=== PATIENT | male | born 1945 | race Caucasian/White ===

== ENCOUNTER 2016-08-25 23:30 | Emergency (ER) | payer MEDICARE, OTHER ==
[2016-08-26 00:02] LABS: BASOPHILS % 0.5 (0.0-1.5); EOSINOPHILS % 2.4 % (0.0-6.8); LYMPHOCYTES # 1.9 # k/uL (0.6-4.0); MONOCYTES # 0.4 # k/uL (0.0-0.9); MONOCYTES % 7.2 % (0.0-11.0); NEUTROPHILS # 3.5 # k/uL (1.4-7.7)
[2016-08-26] MEDS: OXYMETAZOLINE HCL 0.05% NASAL SPRAY NS ONE (00:30)
[2016-08-26] MEDS ORDERED: OXYMETAZOLINE HCL 0.05% NASAL SPRAY NS ONE (00:57)
--- NOTE | 2016-08-26 02:06 | ED Physician Documentation ---
General Adult - HISTORIAN Historian: patient - HPI Stated Complaint: nose bleed Chief Complaint: General Adult Further Comments: yes (Pt is a 71 yo male) - ROS CONST: no problems EYES/ENT: other (R epistaxis) CVS/RESP: none GI/: none MS/SKIN/LYMPH: none - PAST HX Past History: other (Depression, GERD, CA) Allergies/Adverse Reactions: Allergies Allergy/AdvReac Type Severity Reaction Status Date / Time Penicillins Allergy Unknown Verified 08/25/16 23:42 Sulfa (Sulfonamide Allergy Unknown Verified 08/25/16 23:42 Antibiotics) Home Medications: Ambulatory Orders Medication Instructions Recorded Aspirin [Yoli] 81 mg PO QD 03/11/14 Bupropion HCl [Wellbutrin Sr] 150 mg PO DAILY 03/11/14 Citalopram Hydrobromide [Celexa] 40 mg PO DAILY 03/11/14 Clonazepam [Klonopin] 0.5 mg PO TID 03/11/14 Furosemide [Lasix] 40 mg PO 714 03/11/14 Potassium Chloride [K-Tab ER] 30 meq PO BID 03/11/14 Quetiapine Fumarate [Seroquel] 50 mg PO BID 03/11/14 Ranitidine HCl [Zantac] 150 mg PO BID 03/11/14 Warfarin Sodium [Coumadin] 7.5 mg PO DAILY 03/11/14 Cetirizine HCl [Zyrtec] 10 mg PO D 05/18/16 Fluticasone Propionate [Flovent 2 spray INH BID 05/18/16 Diskus] Sotalol HCl [Sotalol] 100 mg PO BID 08/26/16 - SOCIAL HX Smoking History: non-smoker - FAMILY HX Family History: No - VITAL SIGNS Vital Signs: Vital Signs Temp Pulse Resp BP Pulse Ox 98.4 F 70 18 133/82 97 08/25/16 23:30 08/25/16 23:30 08/25/16 23:30 08/25/16 23:30 08/25/16 23:30 - REVIEWED ASSESSMENTS Nursing Assessment Reviewed: Yes Vitals Reviewed: Yes Progress - Progress Progress: Afrin nasal spray silver nitrate to anterior R nares Nasal sponges (2) inserted into R nares skip next dose of coumadin and aspirin f/u pcp tomorrow for nasal sponge removal. ED Results Lab/Radiology - Lab Results Lab Results: Lab Results 08/25/16 08/25/16 23:57 23:57 WBC 6.20 K/ul K/ul (4.00-12.00) RBC 4.67 M/ul M/ul (3.90-5.20) Hgb 14.4 g/dL g/dL (12.0-18.0) Hct 46.4 % % (37.0-53.0) MCV 99.3 fl fl (80.0-100.0) MCH 31.0 pg pg (28.0-34.0) MCHC 31.2 g/dL g/dL (30.0-36.0) RDW 14.6 % H % (11.3-14.3) Plt Count 113 K/mm3 L K/mm3 (130-400) Neut % (Auto) 56.3 % % (39.0-79.0) Lymph % (Auto) 31.1 % % (16.0-50.0) [place] % (Auto) 7.2 % % (0.0-11.0) Eos % (Auto) 2.4 % % (0.0-6.8) Baso % (Auto) 0.5 (0.0-1.5) Neut # 3.5 # k/uL # k/uL (1.4-7.7) Lymph # 1.9 # k/uL # k/uL (0.6-4.0) [place] # 0.4 # k/uL # k/uL (0.0-0.9) Eos # 0.2 # k/uL # k/uL (0.0-0.6) Baso # 0.0 # k/uL # k/uL (0.0-0.5) Reactive Lymphs % 2.4 % % (0.0-5.0) Reactive Lymphs # 0.2 # k/uL # k/uL (0.0-0.8) PT 27.0 Seconds H Seconds (9.7-11.5) INR 2.5 H (0.9-1.1) APTT 30.8 Seconds Seconds (24.5-32.8) - Orders Orders: ED Orders Category Date Time Status CBC/PLATELET/DIFF Routine Lab 08/25/16 23:57 Completed PT-INR Routine Lab 08/25/16 23:57 Completed PTT Routine Lab 08/25/16 23:57 Completed Oxymetazoline HCl [Afrin 0.05%] Med 08/26/16 00:57 Discontinued 30 spray NS .STK-MED ONE General Adult Physical Exam - PHYSICAL EXAM GENERAL APPEARANCE: mild distress EENT: eye inspection normal, other (epistaxis, R nares) NECK: normal inspection, supple RESPIRATORY: no resp distress, chest non-tender, breath sounds normal CVS: reg rate & rhythm, heart sounds normal BACK: normal inspection SKIN: warm/dry, normal color EXTREMITIES: non-tender, normal range of motion NEURO: oriented X3, motor nml, sensation nml Discharge Clincal Impression: Right-sided nosebleed Referrals: Jamie Carlin MD [Primary Care Provider] - Additional Instructions: Follow up with primary provider tomorrow for removal of nasal sponge. Skip next dose of coumadin. Home Medications: Ambulatory Orders Aspirin [Yoli] 81 mg PO QD 03/11/14 Bupropion HCl [Wellbutrin Sr] 150 mg PO DAILY 03/11/14 Citalopram Hydrobromide [Celexa] 40 mg PO DAILY 03/11/14 Clonazepam [Klonopin] 0.5 mg PO TID 03/11/14 Furosemide [Lasix] 40 mg PO 714 03/11/14 Potassium Chloride [K-Tab ER] 30 meq PO BID 03/11/14 Quetiapine Fumarate [Seroquel] 50 mg PO BID 03/11/14 Ranitidine HCl [Zantac] 150 mg PO BID 03/11/14 Warfarin Sodium [Coumadin] 7.5 mg PO DAILY 03/11/14 Cetirizine HCl [Zyrtec] 10 mg PO D 05/18/16 Fluticasone Propionate [Flovent Diskus] 2 spray INH BID 05/18/16 Sotalol HCl [Sotalol] 100 mg PO BID 08/26/16 Condition: Good Disposition: 01 HOME, SELF-CARE Decision to Admit: NO Decision Time: 02:06
[2016-08-26 02:28] VITALS: BP 136/96
== END 2016-08-26 02:10 | disposition home or self-care (01) ==
LOC: ED 23:30
DX: R04.0 Epistaxis (principal); D68.32 Hemorrhagic disorder due to extrinsic circulating anticoagulants; T45.515A Adverse effect of anticoagulants, initial encounter
CPT/HCPCS: 30901; 85025; 85610; 85730; 99283

== ENCOUNTER 2016-08-29 12:25 | Outpatient (CLI) | payer MEDICARE, OTHER | END 2016-08-29 12:26 | LOC: LAB 12:25 | PROVIDERS: ATTEND Internal Medicine Clinical Cardiac Electrophysiology | DX: I34.0 Nonrheumatic mitral (valve) insufficiency (principal) | CPT/HCPCS: 36415; 85610 ==

== ENCOUNTER 2016-09-09 12:04 | Outpatient (CLI) | payer MEDICARE, OTHER | END 2016-09-09 12:10 | LOC: LAB 12:04 | PROVIDERS: ATTEND Internal Medicine Clinical Cardiac Electrophysiology | DX: Z51.81 Encounter for therapeutic drug level monitoring (principal); Z79.01 Long term (current) use of anticoagulants; I34.0 Nonrheumatic mitral (valve) insufficiency | CPT/HCPCS: 36415; 85610 ==

== ENCOUNTER 2016-09-23 13:33 | Outpatient (CLI) | payer MEDICARE, OTHER | END 2016-09-23 13:34 | LOC: LAB 13:33 | PROVIDERS: ATTEND Internal Medicine Clinical Cardiac Electrophysiology | DX: Z51.81 Encounter for therapeutic drug level monitoring (principal); Z79.01 Long term (current) use of anticoagulants; I37.0 Nonrheumatic pulmonary valve stenosis | CPT/HCPCS: 36415; 85610 ==

== ENCOUNTER 2016-10-07 13:30 | Outpatient (CLI) | payer MEDICARE, OTHER | END 2016-10-07 13:32 | LOC: LAB 13:30 | PROVIDERS: ATTEND Internal Medicine Clinical Cardiac Electrophysiology | DX: I34.0 Nonrheumatic mitral (valve) insufficiency (principal) | CPT/HCPCS: 36415; 85610 ==

== ENCOUNTER 2016-10-28 14:00 | Outpatient (CLI) | payer MEDICARE, OTHER | END 2016-10-28 14:02 | LOC: LAB 14:00 | PROVIDERS: ATTEND Internal Medicine Clinical Cardiac Electrophysiology | DX: Z51.81 Encounter for therapeutic drug level monitoring (principal); Z79.899 Other long term (current) drug therapy; I34.0 Nonrheumatic mitral (valve) insufficiency | CPT/HCPCS: 36415; 85610 ==

== ENCOUNTER 2016-11-13 10:56 | Outpatient (CLI) | payer MEDICARE, OTHER | END 2016-11-13 10:57 | LOC: LAB 10:56 | PROVIDERS: ATTEND Internal Medicine Clinical Cardiac Electrophysiology | DX: Z51.81 Encounter for therapeutic drug level monitoring (principal); Z79.01 Long term (current) use of anticoagulants; I34.0 Nonrheumatic mitral (valve) insufficiency | CPT/HCPCS: 36415; 85610 ==

== ENCOUNTER 2016-11-28 08:50 | Outpatient (CLI) | payer MEDICARE, OTHER | END 2016-11-28 08:52 | LOC: LAB 08:50 | PROVIDERS: ATTEND Internal Medicine Clinical Cardiac Electrophysiology | DX: Z51.81 Encounter for therapeutic drug level monitoring (principal); Z79.01 Long term (current) use of anticoagulants; I35.0 Nonrheumatic aortic (valve) stenosis | CPT/HCPCS: 36415; 85610 ==

== ENCOUNTER 2016-11-28 08:59 | Emergency (ER) | payer MEDICARE, OTHER ==
[2016-11-28 09:11] VITALS: BP 117/77
--- NOTE | 2016-11-28 14:12 | ED Physician Documentation ---
General Adult - HISTORIAN Historian: patient - HPI Stated Complaint: Abrasion to Left Elbow Chief Complaint: General Adult Further Comments: yes (71 year old male patient presents after having PT/INR drawn with abrasion on left elbow. Patient states he cannot get the wound to stop bleeding.) - ROS CONST: no problems EYES/ENT: none CVS/RESP: none GI/: none MS/SKIN/LYMPH: none NEURO/PSYCH: denies: headache - PAST HX Past History: AMI Other History: other (GERD, depression) Surgeries/Procedures: cardiac bypass Allergies/Adverse Reactions: Allergies Allergy/AdvReac Type Severity Reaction Status Date / Time Penicillins Allergy Unknown Verified 11/28/16 09:11 Sulfa (Sulfonamide Allergy Unknown Verified 11/28/16 09:11 Antibiotics) Home Medications: Ambulatory Orders Medication Instructions Recorded Aspirin [Yoli] 81 mg PO QD 03/11/14 Bupropion HCl [Wellbutrin Sr] 150 mg PO DAILY 03/11/14 Citalopram Hydrobromide [Celexa] 40 mg PO DAILY 03/11/14 Clonazepam [Klonopin] 0.5 mg PO TID 03/11/14 Furosemide [Lasix] 40 mg PO 714 03/11/14 Potassium Chloride [K-Tab ER] 30 meq PO BID 03/11/14 Quetiapine Fumarate [Seroquel] 50 mg PO BID 03/11/14 Ranitidine HCl [Zantac] 150 mg PO BID 03/11/14 Warfarin Sodium [Coumadin] 7.5 mg PO DAILY 03/11/14 Cetirizine HCl [Zyrtec] 10 mg PO D 05/18/16 Fluticasone Propionate [Flovent 2 spray INH BID 05/18/16 Diskus] Sotalol HCl [Sotalol] 100 mg PO BID 08/26/16 - SOCIAL HX Smoking History: non-smoker - FAMILY HX Family History: No - VITAL SIGNS Vital Signs: Vital Signs Temp Pulse Resp BP Pulse Ox 97 F L 71 16 117/77 99 11/28/16 09:16 11/28/16 09:16 11/28/16 09:16 11/28/16 09:16 11/28/16 09:16 - REVIEWED ASSESSMENTS Nursing Assessment Reviewed: Yes Vitals Reviewed: Yes General Adult Physical Exam - PHYSICAL EXAM GENERAL APPEARANCE: no distress EENT: eye inspection normal, ANUJ SKIN: warm/dry, normal color, other (3 cm abrasion to left elbow. Multiple ecchymotic areas noted on bilateral forearms. 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 NEURO: oriented X3, CN's nml as tested Discharge Clincal Impression: Abrasion Home Medications: Ambulatory Orders Aspirin [Yoli] 81 mg PO QD 03/11/14 Bupropion HCl [Wellbutrin Sr] 150 mg PO DAILY 03/11/14 Citalopram Hydrobromide [Celexa] 40 mg PO DAILY 03/11/14 Clonazepam [Klonopin] 0.5 mg PO TID 03/11/14 Furosemide [Lasix] 40 mg PO 714 03/11/14 Potassium Chloride [K-Tab ER] 30 meq PO BID 03/11/14 Quetiapine Fumarate [Seroquel] 50 mg PO BID 03/11/14 Ranitidine HCl [Zantac] 150 mg PO BID 03/11/14 Warfarin Sodium [Coumadin] 7.5 mg PO DAILY 03/11/14 Cetirizine HCl [Zyrtec] 10 mg PO D 05/18/16 Fluticasone Propionate [Flovent Diskus] 2 spray INH BID 05/18/16 Sotalol HCl [Sotalol] 100 mg PO BID 08/26/16 Condition: Stable Disposition: 01 HOME, SELF-CARE Decision to Admit: NO Decision Time: 09:10
== END 2016-11-28 09:16 | disposition home or self-care (01) ==
LOC: ED 08:59
DX: S50.312A Abrasion of left elbow, initial encounter (principal); W19.XXXA Unspecified fall, initial encounter; Y93.9 Activity, unspecified; Y99.9 Unspecified external cause status
CPT/HCPCS: 99283

== ENCOUNTER 2016-12-05 13:50 | Outpatient (CLI) | payer MEDICARE, OTHER | END 2016-12-05 13:52 | LOC: LAB 13:50 | PROVIDERS: ATTEND Internal Medicine Clinical Cardiac Electrophysiology | DX: Z51.81 Encounter for therapeutic drug level monitoring (principal); Z79.01 Long term (current) use of anticoagulants; I34.0 Nonrheumatic mitral (valve) insufficiency | CPT/HCPCS: 36415; 85610 ==

== ENCOUNTER 2016-12-17 12:36 | Outpatient (CLI) | payer MEDICARE, OTHER | END 2016-12-17 12:37 | LOC: LAB 12:36 | PROVIDERS: ATTEND Internal Medicine Clinical Cardiac Electrophysiology | DX: Z51.81 Encounter for therapeutic drug level monitoring (principal); Z79.01 Long term (current) use of anticoagulants; I34.0 Nonrheumatic mitral (valve) insufficiency | CPT/HCPCS: 36415; 85610 ==

== ENCOUNTER 2017-01-06 08:17 | Outpatient (CLI) | payer MEDICARE, OTHER | END 2017-01-06 08:18 | LOC: LAB 08:17 | PROVIDERS: ATTEND Internal Medicine Clinical Cardiac Electrophysiology | DX: I34.0 Nonrheumatic mitral (valve) insufficiency (principal) | CPT/HCPCS: 36415; 85610 ==

== ENCOUNTER 2017-01-17 11:17 | Emergency (ER) | payer MEDICARE, OTHER ==
--- NOTE | 2017-01-17 12:05 | ED Physician Documentation ---
General Adult - HISTORIAN Historian: patient - HPI Stated Complaint: lac left elbow Chief Complaint: Laceration/Recheck/Suture Additional Information: Fell last evening onto glass insulator. Lac left elbow. Can't stop bleeding. On coumadin. Rafaela Toure sent him to ER. Onset: other (2029 last ) - ROS CONST: no problems - PAST HX Past History: AMI Surgeries/Procedures: cardiac bypass Allergies/Adverse Reactions: Allergies Allergy/AdvReac Type Severity Reaction Status Date / Time Penicillins Allergy Unknown Verified 01/17/17 11:45 Sulfa (Sulfonamide Allergy Unknown Verified 01/17/17 11:45 Antibiotics) Home Medications: Ambulatory Orders Medication Instructions Recorded Aspirin [Yoli] 81 mg PO QD 03/11/14 Bupropion HCl [Wellbutrin Sr] 150 mg PO DAILY 03/11/14 Citalopram Hydrobromide [Celexa] 40 mg PO DAILY 03/11/14 Clonazepam [Klonopin] 0.5 mg PO TID 03/11/14 Furosemide [Lasix] 40 mg PO 714 03/11/14 Potassium Chloride [K-Tab ER] 30 meq PO BID 03/11/14 Quetiapine Fumarate [Seroquel] 50 mg PO BID 03/11/14 Ranitidine HCl [Zantac] 150 mg PO BID 03/11/14 Warfarin Sodium [Coumadin] 7.5 mg PO DAILY 03/11/14 Cetirizine HCl [Zyrtec] 10 mg PO D 05/18/16 Fluticasone Propionate [Flovent 2 spray INH BID 05/18/16 Diskus] Sotalol HCl [Sotalol] 100 mg PO BID 08/26/16 - SOCIAL HX Smoking History: non-smoker - FAMILY HX Family History: No - VITAL SIGNS Vital Signs: Vital Signs Temp Pulse Resp BP Pulse Ox 117/77 11/28/16 09:16 - REVIEWED ASSESSMENTS Nursing Assessment Reviewed: Yes Vitals Reviewed: Yes Progress - Progress Progress: INR 2.6 Left elbow dressed with BRAIN, pressure wrap. ED Results Lab/Radiology - Lab Results Lab Results: Lab Results 01/17/17 11:35 PT 28.0 Seconds H Seconds (9.7-11.5) INR 2.6 H (0.9-1.1) - Orders Orders: ED Orders Category Date Time Status PT-INR Routine Lab 01/17/17 11:35 Completed General Adult Physical Exam - PHYSICAL EXAM GENERAL APPEARANCE: no distress EENT: eye inspection normal, ENT inspection normal NECK: normal inspection, supple RESPIRATORY: no resp distress BACK: other (fluid movements w/o pain) SKIN: warm/dry, normal color, other (3 cm total length lac left elbow, v shaped , no FB. Oozing blood. ) EXTREMITIES: normal range of motion (gait and stance) NEURO: CN's nml as tested, motor nml, sensation nml, cognition normal Discharge Clincal Impression: Laceration of left elbow Qualifiers: Encounter type: initial encounter Qualified Code(s): S51.012A - Laceration without foreign body of left elbow, initial encounter Referrals: Kishan Gutierrez DO [Primary Care Provider] - 2 Days Additional Instructions: Leave the dressing on for two to three days. Home Medications: Ambulatory Orders Aspirin [Yoli] 81 mg PO QD 03/11/14 Bupropion HCl [Wellbutrin Sr] 150 mg PO DAILY 03/11/14 Citalopram Hydrobromide [Celexa] 40 mg PO DAILY 03/11/14 Clonazepam [Klonopin] 0.5 mg PO TID 03/11/14 Furosemide [Lasix] 40 mg PO 714 03/11/14 Potassium Chloride [K-Tab ER] 30 meq PO BID 03/11/14 Quetiapine Fumarate [Seroquel] 50 mg PO BID 03/11/14 Ranitidine HCl [Zantac] 150 mg PO BID 03/11/14 Warfarin Sodium [Coumadin] 7.5 mg PO DAILY 03/11/14 Cetirizine HCl [Zyrtec] 10 mg PO D 05/18/16 Fluticasone Propionate [Flovent Diskus] 2 spray INH BID 05/18/16 Sotalol HCl [Sotalol] 100 mg PO BID 08/26/16 Condition: Good Disposition: 01 HOME, SELF-CARE Decision to Admit: NO Decision Time: 12:04
[2017-01-17 12:17] VITALS: BP 114/65
== END 2017-01-17 12:17 | disposition home or self-care (01) ==
LOC: ED 11:17
DX: S51.012A Laceration without foreign body of left elbow, initial encounter (principal); W19.XXXA Unspecified fall, initial encounter; Y93.9 Activity, unspecified; Y99.9 Unspecified external cause status
CPT/HCPCS: 85610; 99283

== ENCOUNTER 2017-01-20 16:50 | Emergency (ER) | payer MEDICARE, OTHER ==
[2017-01-20] MEDS ORDERED: DILTIAZEM HCL 25 MG/ 5ML VIAL ONE (17:07)
[2017-01-20] MEDS ORDERED: AMIODARONE HCL 150 MG/3ML VIAL IVP ONE ×2 (17:30→17:36)
[2017-01-20] MEDS ORDERED: DILTIAZEM HCL 25 MG/ 5ML VIAL IVP ONE (17:31)
[2017-01-20 17:39] LABS: BASOPHILS % 1.3 (0.0-1.5); EOSINOPHILS % 1.7 % (0.0-6.8); MEAN CORPUSCULAR HEMOGLOBIN 32.2 pg (28.0-34.0); MEAN CORPUSCULAR VOLUME 100.4 fl (80.0-100.0); MONOCYTES % 7.5 % (0.0-11.0); NEUTROPHILS # 2.3 # k/uL (1.4-7.7)
[2017-01-20 17:51] LABS: eGFR (African) > 60; eGFR (Non-African) > 60
[2017-01-20] MEDS ORDERED: ONDANSETRON HCL/PF 4 MG/ 2ML VIAL ONE (18:04)
--- NOTE | 2017-01-20 18:08 | ED Physician Documentation ---
Chest Pain - HISTORIAN Historian: patient - HPI Stated Complaint: chest pain Chief Complaint: Chest Pain Additional Information: had stent plaed past 1-2 weeks. was in cardiac rehab today, after returning home , noted some increasing chest pain, upper abdomen/low chest. called EMS, when they arrived he was tachycardic, with rate in 170's. ECG shows wide complex sinus tach. His pain is not severe. He doesn't feel good, no nausea, SOA, Diaphoresis. Onset: minutes Timing: gradual onset Duration: constant Last known Well Date: 01/20/17 Last Known Well Time: 15:00 Last known Well Code/Unknown Code: Unknown Context: exertion Severity: moderate Quality: dull, aching Chest Pain Radiation: no radiation Chest Pain Signs/Symptoms: denies: nausea, vomiting, diaphoresis, dizziness, dyspnea Worsened By: nothing Relieved By: nothing Further Comments: no - ROS CONST: none MS/LYMPH: none GI/: none EYES/ENT: none SKIN/ENDO: none NEURO/PSYCH: none - PAST HX [place] risk factors: hypertension, hyperlipidemia, cardiac disease DVT/PE Risk Factors: none TAD/AAA risk factors: none Neuro deficit: none GI disease: none Lung disease: none Surgeries/Procedures: cardiac cath, other Allergies/Adverse Reactions: Allergies Allergy/AdvReac Type Severity Reaction Status Date / Time Penicillins Allergy Unknown Verified 01/17/17 11:45 Sulfa (Sulfonamide Allergy Unknown Verified 01/17/17 11:45 Antibiotics) Home Medications: Ambulatory Orders Medication Instructions Recorded Aspirin [Yoli] 81 mg PO QD 03/11/14 Bupropion HCl [Wellbutrin Sr] 300 mg PO DAILY 03/11/14 Citalopram Hydrobromide [Celexa] 40 mg PO DAILY 03/11/14 Clonazepam [Klonopin] 0.5 mg PO TID 03/11/14 Furosemide [Lasix] 40 mg PO 714 03/11/14 Potassium Chloride [K-Tab ER] 20 meq PO BID 03/11/14 Quetiapine Fumarate [Seroquel] 50 mg PO BID 03/11/14 Warfarin Sodium [Coumadin] 7.5 mg PO DAILY 03/11/14 Sotalol HCl [Sotalol] 120 mg PO BID 08/26/16 Clopidogrel Bisulfate [Plavix] 75 mg PO DAILY 01/17/17 Cyclobenzaprine HCl [Flexeril] 5 mg PO TID 01/17/17 Fexofenadine HCl [Tiffani] 180 mg PO DAILY 01/17/17 - SOCIAL HX Smoking History: non-smoker Alcohol Use: none Drug Use: none - FAMILY HX Family HX: none - VITAL SIGNS Vital Signs: Vital Signs Temp Pulse Resp BP Pulse Ox 114/65 01/17/17 12:15 - REVIEWED ASSESSMENTS Nursing Assessment Reviewed: Yes Vitals Reviewed: Yes Progress - Results/Orders Results/Orders: Dr desai wants him transferred to [place] after seeing ECG that was faxed Rate slight decrease after amiodarone x 2 - EKG/XRAY/CT EKG: rhythm (sinus tach 170's) ED Results Lab/Radiology - Orders Orders: ED Orders Category Date Time Status Continuous EKG monitoring Q30M Care 01/20/17 17:29 Ordered Continuous Pulse Oximetry Q30M Care 01/20/17 17:29 Ordered CBC/PLATELET/DIFF Routine Lab 01/20/17 17:29 Ordered CMP Routine Lab 01/20/17 17:29 Ordered CREATINE KINASE Routine Lab 01/20/17 17:29 Ordered TROPONIN I (cTnI) Stat Lab 01/20/17 17:29 Ordered Amiodarone HCl [Cordarone] Med 01/20/17 17:30 Once 150 mg IVP 1T ONE Amiodarone HCl [Cordarone] Med 01/20/17 17:36 Once 150 mg IVP 1T ONE Diltiazem HCl [Cardizem] Med 01/20/17 17:31 Once 20 mg IVP STAT ONE Diltiazem HCl [Cardizem] Med 01/20/17 17:07 Discontinued 25 mg .ROUTE .STK-MED ONE Oxygen Daily Oxygen 01/20/17 17:30 Ordered EKG WITH COMPARISON Routine Ther 01/20/17 Completed Chest Pain Physical Exam - EXAM General Appearance: alert, mild distress EENT: ENT inspection normal Neck: nml inspection. No: JVD present Respiratory: no resp. distress, nml breath sounds. No: resp.distress CVS: pulses equal, tachycardia Abdomen: soft, no distension Skin: warm/dry, normal color Extremities: non-tender Neuro: oriented X3, mood/affect nml, cognition normal Discharge Clincal Impression: Tachycardia Chest pain Qualifiers: Chest pain type: chest pain due to myocardial ischemia Ischemic chest pain type : unstable angina pectoris Qualified Code(s): I20.0 - Unstable angina Coronary artery disease Qualifiers: Coronary Disease-Associated Artery/Lesion type: unspecified vessel or lesion type [place] vs. transplanted heart: [place] heart Associated angina: with stable angina Qualified Code(s): I25.118 - Atherosclerotic heart disease of [place] coronary artery with other forms of angina pectoris Referrals: Kishan Gutierrez DO [Primary Care Provider] - 2 Days Home Medications: Ambulatory Orders Aspirin [Yoli] 81 mg PO QD 03/11/14 Bupropion HCl [Wellbutrin Sr] 300 mg PO DAILY 03/11/14 Citalopram Hydrobromide [Celexa] 40 mg PO DAILY 03/11/14 Clonazepam [Klonopin] 0.5 mg PO TID 03/11/14 Furosemide [Lasix] 40 mg PO 714 03/11/14 Potassium Chloride [K-Tab ER] 20 meq PO BID 03/11/14 Quetiapine Fumarate [Seroquel] 50 mg PO BID 03/11/14 Warfarin Sodium [Coumadin] 7.5 mg PO DAILY 03/11/14 Sotalol HCl [Sotalol] 120 mg PO BID 08/26/16 Clopidogrel Bisulfate [Plavix] 75 mg PO DAILY 01/17/17 Cyclobenzaprine HCl [Flexeril] 5 mg PO TID 01/17/17 Fexofenadine HCl [Tiffani] 180 mg PO DAILY 01/17/17 Condition: Stable Disposition: XFER SHT-TRM HOSP Decision to Admit: NO Date of Decison to Admit: 01/20/17 Decision Time: 18:07
[2017-01-20] MEDS ORDERED: MAGNESIUM SULFATE/D5W 1 GM in PREMIX BAG 1 BAG IV ONE (19:03)
[2017-01-20] MEDS ORDERED: ONDANSETRON HCL/PF 4 MG/ 2ML VIAL IVP ONE (19:04)
[2017-01-20 19:09] VITALS: BP 92/75
[2017-01-20] MEDS ORDERED: PHARMACY KEY 1 EACH EACH MC ONE (19:22)
== END 2017-01-20 18:10 | disposition short-term general hospital (02) ==
LOC: ED 16:50
DX: R00.0 Tachycardia, unspecified (principal); I20.0 Unstable angina; I25.118 Atherosclerotic heart disease of native coronary artery with other forms of angina pectoris
CPT/HCPCS: 80053; 82550; 84484; 85025; 93005; J0282; J2405; J3475; J3490; 96374; 96375; 99284; S1016

== ENCOUNTER 2017-02-10 13:23 | Outpatient (CLI) | payer MEDICARE, OTHER | END 2017-02-10 13:24 | LOC: LAB 13:23 | PROVIDERS: ATTEND Internal Medicine Clinical Cardiac Electrophysiology | DX: I34.0 Nonrheumatic mitral (valve) insufficiency (principal) | CPT/HCPCS: 36415; 85610 ==

== ENCOUNTER 2017-02-19 15:05 | Outpatient (CLI) | payer MEDICARE, OTHER | END 2017-02-19 15:06 | LOC: LAB 15:05 | PROVIDERS: ATTEND Internal Medicine Clinical Cardiac Electrophysiology | DX: I34.0 Nonrheumatic mitral (valve) insufficiency (principal) | CPT/HCPCS: 36415; 85610 ==

== ENCOUNTER 2017-02-22 15:48 | Emergency (ER) | payer MEDICARE, OTHER ==
--- NOTE | 2017-02-22 16:12 | ED Physician Documentation ---
General Adult - HISTORIAN Historian: patient - HPI Chief Complaint: General Adult Onset: days ago (3 weeks ago) Timing: still present, persistent since Further Comments: yes (Italo states that he had a stent placed about 3 weeks ago. Had been taking coumadin for atrial fibrillation. Has a pacemaker and defibulator. After stint was placed was placed on plavix. Since that time he has been bruising a lot more. Has fallen several times over the last several days. No known reason. Has some generalized weakness but does not think that it contributed to his weakness. No numbness noted. Has not followed up with anyone about the symptoms.) - ROS CONST: denies: fever, chills - PAST HX Past History: A-Fib, other (CAD). denies: COPD Surgeries/Procedures: cardiac bypass (, ), cardiac stent (3 weeks ago) Allergies/Adverse Reactions: Allergies Allergy/AdvReac Type Severity Reaction Status Date / Time Penicillins Allergy Unknown Verified 02/22/17 16:20 Sulfa (Sulfonamide Allergy Unknown Verified 02/22/17 16:20 Antibiotics) Home Medications: Ambulatory Orders Medication Instructions Recorded Aspirin [Yoli] 81 mg PO QD 03/11/14 Bupropion HCl [Wellbutrin Sr] 300 mg PO DAILY 03/11/14 Citalopram Hydrobromide [Celexa] 40 mg PO DAILY 03/11/14 Clonazepam [Klonopin] 0.5 mg PO TID 03/11/14 Furosemide [Lasix] 40 mg PO 714 03/11/14 Potassium Chloride [K-Tab ER] 20 meq PO BID 03/11/14 Quetiapine Fumarate [Seroquel] 50 mg PO BID 03/11/14 Warfarin Sodium [Coumadin] 7.5 mg PO DAILY 03/11/14 Sotalol HCl [Sotalol] 120 mg PO BID 08/26/16 Clopidogrel Bisulfate [Plavix] 75 mg PO DAILY 01/17/17 Fexofenadine HCl [Tiffani] 180 mg PO DAILY 01/17/17 Amiodarone HCl [Pacerone] 200 mg PO QD 02/22/17 - SOCIAL HX Smoking History: non-smoker Alcohol Use: none Drug Use: none - FAMILY HX Family History: No - VITAL SIGNS Vital Signs: Vital Signs Temp Pulse Resp BP Pulse Ox 92/75 01/20/17 19:06 - REVIEWED ASSESSMENTS Nursing Assessment Reviewed: Yes Vitals Reviewed: Yes Progress - EKG/XRAY/CT Comments: pacer rhythm at 70 General Adult Physical Exam - PHYSICAL EXAM GENERAL APPEARANCE: mild distress EENT: eye inspection normal, ENT inspection normal, pharynx normal, no signs of dehydration NECK: normal inspection, supple. No: lymphadenopathy RESPIRATORY: no resp distress, chest non-tender, breath sounds normal. No: wheezes, rales, rhonchi CVS: reg rate & rhythm, heart sounds normal, equal pulses, no murmur, JVD present ABDOMEN: soft, no organomegaly, normal bowel sounds, no abdominal bruit, no distension, non-tender BACK: normal inspection, no CVA tenderness SKIN: warm/dry, other (multiple ecchymotic lesions tot he trunk and UE) NEURO: oriented X3, CN's nml as tested, motor nml, sensation nml, mood/affect nml, cognition normal Discharge Clincal Impression: Weakness, Pleural effusion, Elevated INR Referrals: Kishan Gutierrez DO [Primary Care Provider] - 2 Days Additional Instructions: It is important for you to follow-up with your primary care provider. Do not take your coumadin tonight. Follow-up with Rafaela Pretty next week about your symptoms, elevated INR and right pleural effusion. Return to the ED if needed. Home Medications: Ambulatory Orders Aspirin [Yoli] 81 mg PO QD 03/11/14 Bupropion HCl [Wellbutrin Sr] 300 mg PO DAILY 03/11/14 Citalopram Hydrobromide [Celexa] 40 mg PO DAILY 03/11/14 Clonazepam [Klonopin] 0.5 mg PO TID 03/11/14 Furosemide [Lasix] 40 mg PO 714 03/11/14 Potassium Chloride [K-Tab ER] 20 meq PO BID 03/11/14 Quetiapine Fumarate [Seroquel] 50 mg PO BID 03/11/14 Warfarin Sodium [Coumadin] 7.5 mg PO DAILY 03/11/14 Sotalol HCl [Sotalol] 120 mg PO BID 08/26/16 Clopidogrel Bisulfate [Plavix] 75 mg PO DAILY 01/17/17 Fexofenadine HCl [Tiffani] 180 mg PO DAILY 01/17/17 Amiodarone HCl [Pacerone] 200 mg PO QD 02/22/17 Decision to Admit: NO Date of Decison to Admit: 02/22/17 Decision Time: 18:02
[2017-02-22 16:59] LABS: BASOPHILS % 0.4 (0.0-1.5); EOSINOPHILS % 1.2 % (0.0-6.8); MEAN CORPUSCULAR HEMOGLOBIN 32.2 pg (28.0-34.0); MEAN CORPUSCULAR VOLUME 99.4 fl (80.0-100.0); MONOCYTES % 7.1 % (0.0-11.0); NEUTROPHILS # 3.5 # k/uL (1.4-7.7)
[2017-02-22 17:09] LABS: eGFR (African) > 60; eGFR (Non-African) 53
--- NOTE | 2017-02-22 17:48 | Diagnostic Imaging Report ---
[place]~ [facility] [address] [facility] [address] ~ ~ ~ ~ Report Submission Date: Feb 22, 2017 4:55:43 PM CDT Patient ~ Study Name: BIBIANA DIAZ ~ Date: Feb 22, 2017 4:21:12 PM CDT ~ Modality Type: CR Gender: M ~ Description: CHEST : 41 ~ Institution: [facility] Physician: [place] ~ ~ ~ ~ 2 views the chest Clinical history: Dyspnea Findings: There is a small right pleural effusion right lower lobe atelectasis and/or infiltrate. Heart size mildly enlarged. Left-sided pacemaker noted. Overlying leads and evaluation. No pneumothorax. Left-sided pacemaker /defibrillator noted. Prior median sternotomy and valve replacement noted. There is a hiatal hernia. Impression: 1. Right pleural effusion with lower lobe atelectasis or infiltrate. 2. Hiatal hernia. ~ Electronically signed on Feb 22, 2017 4:55:43 PM CDT by: Yassine MOCK
[2017-02-22 18:32] VITALS: BP 148/72
== END 2017-02-22 18:20 ==
LOC: ED 15:48
DX: R53.1 Weakness (principal); J90 Pleural effusion, not elsewhere classified
CPT/HCPCS: 71020; 80053; 84484; 85025; 85610; 99283; S1016

== ENCOUNTER 2017-03-13 20:18 | Emergency (ER) | payer MEDICARE, OTHER ==
[2017-03-13] MEDS ORDERED: ACETAMINOPHEN 500 MG TABLET ONE (21:28)
[2017-03-13] MEDS: ACETAMINOPHEN 500 MG TABLET PO ONE (21:28)
--- NOTE | 2017-03-13 21:41 | ED Physician Documentation ---
Hand Injury - HISTORIAN Historian: patient - HPI Stated Complaint: Fall with Left Arm Injury Chief Complaint: Hand Injury Additional Information: fell off rolling chair Onset: just prior to arrival Where: home Severity: moderate Duration: persistent since (fall) Context: fall Location of Injury: L elbow, L fingers (index) Modifying Factors: pain on movement Further Comments: no - ROS CONST: no problems GI/: denies: problems urinating, nausea, vomiting NEURO: none. denies: headache, fainting, anxiety, depression CVS/RESP: none. denies: chest pain, shortness of breath, cough EYES/ENT: none MS/SKIN/LYMPH: none - PAST HX Past History: other (cad, hyperlipidemia, htn) Immunizations: referred to PCP Allergies/Adverse Reactions: Allergies Allergy/AdvReac Type Severity Reaction Status Date / Time Penicillins Allergy Unknown Verified 02/22/17 16:20 Sulfa (Sulfonamide Allergy Unknown Verified 02/22/17 16:20 Antibiotics) Home Medications: Ambulatory Orders Medication Instructions Recorded Aspirin [Yoli] 81 mg PO QD 03/11/14 Bupropion HCl [Wellbutrin Sr] 300 mg PO DAILY 03/11/14 Citalopram Hydrobromide [Celexa] 40 mg PO DAILY 03/11/14 Clonazepam [Klonopin] 0.5 mg PO TID 03/11/14 Furosemide [Lasix] 40 mg PO 714 03/11/14 Potassium Chloride [K-Tab ER] 20 meq PO BID 03/11/14 Quetiapine Fumarate [Seroquel] 50 mg PO BID 03/11/14 Warfarin Sodium [Coumadin] 7.5 mg PO DAILY 03/11/14 Sotalol HCl [Sotalol] 120 mg PO BID 08/26/16 Clopidogrel Bisulfate [Plavix] 75 mg PO DAILY 01/17/17 Fexofenadine HCl [Tiffani] 180 mg PO DAILY 01/17/17 Amiodarone HCl [Pacerone] 200 mg PO QD 02/22/17 - SOCIAL HX Smoking History: non-smoker Alcohol Use: none - FAMILY HX Family History: no significant history - VITAL SIGNS Vital Signs: Vital Signs Temp Pulse Resp BP Pulse Ox 97.1 F L 82 18 145/68 92 03/13/17 20:20 03/13/17 20:20 03/13/17 20:20 03/13/17 20:20 03/13/17 20:20 - REVIEWED ASSESSMENTS Nursing Assessment Reviewed: Yes Vitals Reviewed: Yes Procedures Wound Location: upper extremity Wound Length: 2 cm Wound's Depth, Shape: into muscle, linear Wound Explored: clean Betadine Prep?: Yes Anesthesia: 2% Lidocaine Volume of Anesthetic: 12 cc 6 cc base of finger at each side for nerve block Wound Repaired With: sutures Suture Size/Type: 3:0, proline Number of Sutures: 6 Layer Closure?: No Sterile Dressing Applied?: Yes Splint Applied?: No Sling Applied?: No Progress - Results/Orders Results/Orders: x-ray left hand ordered - Progress Progress: pt. tolerated procedure well, moderate blood loss. Critical Care Note - Critical Care Note Total Time (mins): 0 ED Results Lab/Radiology - Lab Results Lab Results: none ordered - Radiology Radiology Impressions: x-ray left hand neg - Orders Orders: ED Orders Category Date Time Status HAND 3 VIEWS OR MORE [RAD] Stat Exams 03/13/17 Taken Acetaminophen [Tylenol Extra Strength] Med 03/13/17 21:28 Discontinued 1,000 mg .ROUTE .STK-MED ONE Acetaminophen [Tylenol Extra Strength] Med 03/13/17 21:28 Discontinued 1,000 mg PO NOW ONE Hand Injury Physical Exam - Exam General Appearance: alert, moderate distress Hand: deformity (dislocated distal phalynx), other (2 cm laceration palmar aspect left 2nd finger dip jt.) Wrist: normal inspection, non-tender, no evidence of injury, normal ROM Neuro: sensation nml, motor nml Vascular: no vascular compromise Tendons: tendon function nml Forearm/Elbow/Arm: other (skin tear left elbow) Skin: other (laceration le3ft 2nd finger and left elbow) Head/ENT: nml inspection Neck/Back: nml inspection Resp/CVS: chest non-tender, breath sounds nml, heart sounds nml, no resp. distress, lungs clear, reg. rate & rhythm Abdomen: non-tender, no organomegaly, nml bowel sounds Discharge Clincal Impression: Laceration Referrals: Kishan Gutierrez DO [Primary Care Provider] - 2 Days Home Medications: Ambulatory Orders Aspirin [Yoli] 81 mg PO QD 03/11/14 Bupropion HCl [Wellbutrin Sr] 300 mg PO DAILY 03/11/14 Citalopram Hydrobromide [Celexa] 40 mg PO DAILY 03/11/14 Clonazepam [Klonopin] 0.5 mg PO TID 03/11/14 Furosemide [Lasix] 40 mg PO 714 03/11/14 Potassium Chloride [K-Tab ER] 20 meq PO BID 03/11/14 Quetiapine Fumarate [Seroquel] 50 mg PO BID 03/11/14 Warfarin Sodium [Coumadin] 7.5 mg PO DAILY 03/11/14 Sotalol HCl [Sotalol] 120 mg PO BID 08/26/16 Clopidogrel Bisulfate [Plavix] 75 mg PO DAILY 01/17/17 Fexofenadine HCl [Tiffani] 180 mg PO DAILY 01/17/17 Amiodarone HCl [Pacerone] 200 mg PO QD 02/22/17 Comments: discharged with suture care instructions Condition: Stable Disposition: 01 HOME, SELF-CARE Decision to Admit: NO Decision Time: 21:42
--- NOTE | 2017-03-13 21:53 | Diagnostic Imaging Report ---
DAKOTAH HARRISON [facility] [id number] [facility] [address] [address] Report Submission Date: Mar 13, 2017 9:40:17 PM CDT Patient Study Name: BIBIANA DIAZ Date: Mar 13, 2017 9:12:03 PM CDT Modality Type: CR Gender: M Description: UPPER EXTREMITY : 41 Institution: [facility] Physician: DAKOTAH HARRISON Left hand, 4 views History: Injury Findings: No fracture, dislocation or abnormal bone destruction is identified. Impression: No acute abnormality. Electronically signed on Mar 13, 2017 9:40:17 PM CDT by: Manish MOCK
[2017-03-13 22:02] VITALS: BP 136/75
== END 2017-03-13 21:50 | disposition home or self-care (01) ==
LOC: ED 20:18
DX: S41.112A Laceration without foreign body of left upper arm, initial encounter (principal); X58.XXXA Exposure to other specified factors, initial encounter; Y93.9 Activity, unspecified; Y99.9 Unspecified external cause status
CPT/HCPCS: 12001; 73130; 99283

== ENCOUNTER 2017-05-06 01:56 | Emergency (ER) | payer MEDICARE, OTHER ==
--- NOTE | 2017-05-06 02:55 | ED Physician Documentation ---
Critical Care - HISTORIAN Historian: paramedics, other (POLICE) - HPI Stated Complaint: CARDIAC ARREST Chief Complaint: Code Blue Additional Information: WHEN POLICE ARRIVED AT [facility], PT WAS ON FLOOR, NO CPR IN PROGRESS. sTAFF OBTAINED CRASH CART AND BEGAN BENT ARM COMPRESSIONS. PT SAID TO HAVE BEEN FOUND ON FLOOR OF TOILET WITH AGONAL BREATHING.SHOCKED ONCE EN ROUTE TO ER, PER EMS. - INITIAL FINDINGS BY MEDICS Mentation: Unresponsive Respirations: No Respirations Rhythm: other (PACEMAKER SPIKES) - PRE-HOSPITAL TREATMENT Oxygen: [id number] CRP/Thumper: No Defibrillated X: 1 IV Access: No (INITIATED IN ER) IV Fluids: No (INITIATED IN ER) Vasopressin Given?: No How Many Doses of Atropine?: 2 - ROS CONST: no problems - PAST HX Lung, Cardiac, DM: cardiac disease ([place] IN DECEMBER) Allergies/Adverse Reactions: Allergies Allergy/AdvReac Type Severity Reaction Status Date / Time Penicillins Allergy Unknown Verified 02/22/17 16:20 Sulfa (Sulfonamide Allergy Unknown Verified 02/22/17 16:20 Antibiotics) Home Medications: Ambulatory Orders Medication Instructions Recorded Aspirin [Yoli] 81 mg PO QD 03/11/14 Bupropion HCl [Wellbutrin Sr] 300 mg PO DAILY 03/11/14 Citalopram Hydrobromide [Celexa] 40 mg PO DAILY 03/11/14 Furosemide [Lasix] 40 mg PO 714 03/11/14 Potassium Chloride [K-Tab ER] 20 meq PO BID 03/11/14 Quetiapine Fumarate [Seroquel] 50 mg PO BID 03/11/14 Warfarin Sodium [Coumadin] 7.5 mg PO DAILY 03/11/14 Sotalol HCl [Sotalol] 120 mg PO BID 08/26/16 Clopidogrel Bisulfate [Plavix] 75 mg PO DAILY 01/17/17 Fexofenadine HCl [Tiffani] 180 mg PO DAILY 01/17/17 Amiodarone HCl [Pacerone] 200 mg PO QD 02/22/17 - FAMILY HX Family History: No (UNKNOWN) - VITAL SIGNS Vital Signs: Vital Signs Temp Pulse Resp BP Pulse Ox 136/75 03/13/17 21:50 - REVIEWED ASSESSMENTS Nursing Assessment Reviewed: Yes Vitals Reviewed: Yes Progress - Results/Orders Results/Orders: CPR CONTINUED AT 0147, WHEN PT ARRIVED PER EMS. IV INITIATED WELL 1000 NS. PUPILS NON RESPONSIVE. NO PULSES. CHEST COMPRESSIONS, BAG VALVE MASK RESUSCITATION. EPI 1 MG GIVEN TWICE. FEMORAL AND CAROTID PULSES PALPABLE BRIEFLY. COLOR REMAINED DUSKY THROUGHOUT. PULSES LOST. CODE CALLED,TOD 0205. Discharge Clincal Impression: Cardiac arrest Referrals: Primary Doctor,Mary [Primary Care Provider] - 2 Days Disposition: 20 Decision to Admit: NO Decision Time: 02:05
[2017-05-06] MEDS ORDERED: EPINEPHrine 0.1 MG/ML DISP.SYRIN IVP ONE (03:41)
[2017-05-06] MEDS ORDERED: 0.9 % SODIUM CHLORIDE 1,000 ML IV ONE (03:49)
== END 2017-05-06 04:48 | disposition expired ==
LOC: ED 01:56
DX: I46.9 Cardiac arrest, cause unspecified (principal)
CPT/HCPCS: J0171; J7030; 92950; 96361; 96374; 99285; S1016